=== PATIENT | female | born 1955 | race Caucasian/White ===

== ENCOUNTER 2019-01-23 12:58 | Day surgery (SDC) | payer OTHER ==
[~2019-01-23] VITALS: Ht 160 cm; Wt 88.6 kg
[~2019-01-23 12:58] MED LIST: ASPI81TA50 PO; LANT3I SC; METF500T24 PO; POLY17PO6 PO
[2019-01-23 14:30] VITALS: BP 200/100; PULSE 77; RESP 20
[2019-01-23] MEDS ORDERED: AMLODIPINE (14:46)
[2019-01-23] MEDS ORDERED: HYDRALAZINE (14:46)
[2019-01-23] MEDS ORDERED: MINTOX (14:46)
[2019-01-23] MEDS ORDERED: FUROSEMIDE (14:46)
[2019-01-23] MEDS ORDERED: METFORMIN (14:46)
[2019-01-23] MEDS ORDERED: LOSARTAN POTASSIUM (14:46)
[2019-01-23] MEDS ORDERED: IBUPROFEN (14:46)
[2019-01-23] MEDS ORDERED: VITAMIN D3 (14:46)
[2019-01-23] MEDS ORDERED: ASPIRIN (14:46)
[2019-01-23] MEDS ORDERED: PRAVASTATIN (14:46)
[2019-01-23] MEDS ORDERED: OMEPRAZOLE (14:46)
[2019-01-23] MEDS ORDERED: METOPROLOL TARTRATE (14:46)
[2019-01-23] MEDS ORDERED: JANUVIA (14:46)
[2019-01-23] MEDS ORDERED: MAGNESIUM OXIDE (14:46)
[2019-01-23] MEDS ORDERED: CLONIDINE (14:46)
--- NOTE | 2019-01-23 14:51 | PREAC ---
Date/Time of Note Date/Time of Note DATE: 01/23/19 TIME: 14:45 Anesthesia Eval and Record Evaluation Time Pre-Procedure Interview DATE: 01/23/19 TIME: 14:45 Age 63 Sex female NPO: 8 hrs Preoperative diagnosis Abnormal Findings on the Previous Colonoscopy last year Planned procedure Colonoscopy Past Medical History Past Medical History: Includes Cardio: HTN, Dyslipidemia Endo: Diabetes Musculoskeletal: Osteoarthritis Renal: CKD GI: Obesity Heme: Anemia Surgery & Anesthesia Issues No known issue Meds Anticoagulation: No Beta Hillary within 24 hr: No Reason Beta Hillary not given: Pt. not on B-Hillary Active Scripts Polyethylene Glycol* (Miralax*) 17 Gm Powd.pack, 17 GM PO DAILY, #7 Prov:ROBERT ERIC MD 05/22/15 Reported Medications Metformin Hcl* (Metformin Hcl*) 500 Mg Tablet, 500 MG PO WITH BREAKFAST, TAB 05/22/15 Insulin Glargine* (Lantus*) 100 Unit/Ml Soln, 15 UNIT SC HS, EA 05/22/15 Aspirin (Aspir-Low) 81 Mg Tablet.dr, 81 MG PO DAILY 09/07/12 Meds reviewed: Yes Allergies Coded Allergies: No Known Allergy (Unverified , 05/22/15) Allergies Reviewed: Yes Labs/Studies Labs Reviewed: Reviewed by anesthesiologist test: N/A Studies: ECG (n/a), CXR (n/a) Pre-procedure Exam Airway: Adequate mouth opening, Adequate thyromental dist Mallampati: Mallampati II Teeth: Normal Lung: Normal Heart: Normal ASA Physical Status ASA physical status: 3 Emergency: None Planned Anesthetic General/MAC: MAC Planned Pain Management Parenteral pain med Pre-operative Attestations Prior to commencing anesthesia and surgery, the patient was re-evaluated, there was verification of: *The patient's identity *The results of appropriate recent lab work and preoperative vital signs *The above evaluation not changing prior to induction *Anesthetic plan, risk benefits, alternative and complications discussed with patient/family; questions answered; patient/family understands, accepts and wishes to proceed. DEMETRIUS SIDDIQI MD Jan 23, 2019 14:51
[2019-01-23 14:53] VITALS: Ht 160 cm; Wt 88.6 kg
[2019-01-23] MEDS ORDERED: hydrALAzine 20 MG INJ ONE (14:57)
--- NOTE | 2019-01-23 15:12 | PAC ---
Date/Time of Note Date/Time of Note DATE: 01/23/19 TIME: 15:11 Post-Anesthesia Notes Post-Anesthesia Note Last documented vital signs Vital Signs Date Temp Pulse Resp B/P (MAP) Pulse Ox O2 O2 Flow FiO2 Time Delivery Rate 01/23/19 97.9 77 20 137/65 97 Room Air 15:30 (102) Activity: WNL Respiratory function: WNL Cardiovascular function: WNL Mental status: Baseline Pain reasonably controlled: Yes Hydration appropriate: Yes Nausea/Vomiting absent: Yes DEMETRIUS SIDDIQI MD Jan 23, 2019 15:12
[2019-01-23 15:44] VITALS: BP 116/56; RESP 19
[2019-01-23] MEDS ORDERED: PROPOFOL 20 ML ONE (15:58)
--- NOTE | 2019-01-23 16:42 | HPN ---
Date/Time of Note Date/Time of Note DATE: 01/23/19 TIME: 16:42 Interval H&P Admission Note Pt. seen H&P reviewed: No system changes SAYDA LEÓN Jan 23, 2019 16:42
== END 2019-01-23 15:30 | disposition home or self-care (01) ==
LOC: GIL 12:58
PROVIDERS: ATTEND Internal Medicine Gastroenterology
DX: K59.00 Constipation, unspecified (principal); E11.9 Type 2 diabetes mellitus without complications; E78.5 Hyperlipidemia, unspecified
CPT/HCPCS: 45378; 82962; J0360; Z7610